=== PATIENT | female | born 1965 | race Caucasian/White ===

== ENCOUNTER 2022-07-17 16:45 | Inpatient (IN) | payer OTHER ==
[~2022-07-17] VITALS: Ht 170.2 cm; Wt 109.1 kg
[2022-07-17] MEDS ORDERED: DIVA250T67 (16:59)
[2022-07-17] MEDS ORDERED: ONDANSETRON 4MG 2ML VIAL IV ONE (21:00)
[2022-07-17] MEDS ORDERED: NS 1,000 ML IV ONE (21:00)
[2022-07-17] MEDS ORDERED: KETOROLAC 30 MG/ML 1ML VIAL IV ONE (21:00)
[2022-07-17 21:53] LABS: BASO # 0.1 10^3/uL (0.0-0.2); BASO % 0.2 % (0.0-1.0); EOS # 0.1 10^3/uL (0.0-0.5); EOS % 0.4 % (0.0-3.0); HEMATOCRIT 29.1 % (36.0-47.0); HEMOGLOBIN 8.5 g/dl (12.0-15.5); LYMPH # 2.5 10^3/uL (1.5-5.0); LYMPH % 9.9 % (24.0-44.0); MEAN CORPUSCULAR HEMOGLOBIN 24.6 pg (27.0-33.0); MEAN CORPUSCULAR HGB CONC 29.2 g/dl (32.0-36.5); MEAN CORPUSCULAR VOLUME 84.1 fl (80.0-96.0); MONO % 7.1 % (2.0-8.0); NEUTROPHILS # 20.3 10^3/uL (1.5-8.5); NEUTROPHILS % 79.8 % (36.0-66.0); PLATELET COUNT, AUTOMATED 775 10^3/uL (150-450); RED BLOOD COUNT 3.46 10^6/uL (4.00-5.40); WHITE BLOOD COUNT 25.4 10^3/uL (4.0-10.0)
[2022-07-17 22:15] LABS: LIPASE 17 U/L (12-53)
[2022-07-17] MEDS ORDERED: ISOVUE-370 76% 100ML VIAL As Ordered ONE (22:16)
[2022-07-17 22:21] LABS: ALBUMIN 2.1 G/DL (3.2-5.2); ALKALINE PHOSPHATASE 166 U/L (46-116); ALT/SGPT 15 U/L (7.0-40); AST/SGOT 21 U/L (<34); BILIRUBIN,DIRECT 0.5 MG/DL (<0.4); TOTAL PROTEIN 7.1 G/DL (5.7-8.2)
[2022-07-17 22:27] LABS: RSV AMPLIFICATION NEGATIVE (NEGATIVE)
[2022-07-17 22:30] LABS: HCG, SERUM QUALITATIVE NEGATIVE (NEGATIVE)
[2022-07-17 22:35] LABS: MONO # 1.8 10^3/uL (0.0-0.8)
[2022-07-17] MEDS ORDERED: MORPHINE 4 MG/ML 1ML VIAL IV PRN (23:20)
[2022-07-18] MEDS ORDERED: METOCLOPRAMIDE INJ 10MG/2ML VIAL IV ONE (00:25)
[2022-07-18] MEDS ORDERED: metroNIDAZOLE 500 MG in IV 1 EA IV ONE (00:30)
[2022-07-18] MEDS ORDERED: LevoFLOXacin IV 750 MG in IV 1 EA IV ONE (00:30)
[2022-07-18] MEDS ORDERED: HOME MED LIST COMPLETE! XX SCH (01:25)
[2022-07-18] MEDS ORDERED: ONDANSETRON 4MG 2ML VIAL IV PRN (01:40)
[2022-07-18] MEDS ORDERED: POTASSIUM CHLORIDE 10MEQ SR TABLET PO ONE (01:40)
[2022-07-18 03:30] VITALS: BP 92/64
[2022-07-18] MEDS: NS 1,000 ML IV SCH ×3 (03:42→22:18)
[2022-07-18] MEDS: ACETAMINOPHEN TAB 650MG DOSE (2X325MG) PO PRN (03:48)
[2022-07-18] MEDS: HEPARIN SOD (PORCINE) 5000UNITS/ML 1ML VIAL/SYRINGE SC SCH ×3 (05:42→21:04)
[2022-07-18 06:00] VITALS: BP 91/58
[2022-07-18] MEDS ORDERED: DOXYCYCLINE HYCLATE 100 MG in D5W MINI-BAG PLUS 100 ML IV SCH (06:00)
[2022-07-18 07:23] LABS: BASO # 0.1 10^3/uL (0.0-0.2); BASO % 0.3 % (0.0-1.0); EOS # 0.1 10^3/uL (0.0-0.5); EOS % 0.6 % (0.0-3.0); HEMATOCRIT 24.9 % (36.0-47.0); HEMOGLOBIN 7.4 g/dl (12.0-15.5); LYMPH # 1.8 10^3/uL (1.5-5.0); LYMPH % 9.9 % (24.0-44.0); MEAN CORPUSCULAR HEMOGLOBIN 25.4 pg (27.0-33.0); MEAN CORPUSCULAR HGB CONC 29.7 g/dl (32.0-36.5); MEAN CORPUSCULAR VOLUME 85.6 fl (80.0-96.0); MONO # 1.4 10^3/uL (0.0-0.8); NEUTROPHILS # 13.9 10^3/uL (1.5-8.5); NEUTROPHILS % 78.6 % (36.0-66.0); RED BLOOD COUNT 2.91 10^6/uL (4.00-5.40); WHITE BLOOD COUNT 17.7 10^3/uL (4.0-10.0)
[2022-07-18 07:25] LABS: PLATELET COUNT, AUTOMATED 613 10^3/uL (150-450)
[2022-07-18 07:37] LABS: BLOOD UREA NITROGEN 33 MG/DL (9-23); CALCIUM LEVEL 7.6 MG/DL (8.5-10.1); CARBON DIOXIDE LEVEL 23 MMOL/L (20-31); CHLORIDE LEVEL 102 MMOL/L (98-107); CREATININE FOR GFR 1.49 MG/DL (0.55-1.30); GLOMERULAR FILTRATION RATE 38.7 (>51); GLUCOSE, FASTING 136 MG/DL (60-100); IRON (FE) 41 UG/DL (50-170); PERCENT SATURATION 21.7 % (13.2-45.0); POTASSIUM SERUM 3.8 MMOL/L (3.5-5.1); SODIUM LEVEL 136 MMOL/L (136-145); TOTAL IRON BINDING CAPACITY 189 UG/DL (250-425)
[2022-07-18 07:39] LABS: FERRITIN 327.4 NG/ML (7.3-270.7); FOLATE 2.25 NG/ML (>5.4)
[2022-07-18] MEDS ORDERED: metroNIDAZOLE 500 MG in IV 1 EA IV SCH (09:00)
[2022-07-18 10:10] LABS: CARCINOEMBRYONIC ANTIGEN < 2.0 NG/ML (<2.5)
[2022-07-18 10:25] LABS: CA19-9 TUMOR MARKER,CARBOHYDRA 37.3 U/ML (<35.0)
[2022-07-18 14:00] VITALS: BP 109/59
[2022-07-18] MEDS: ONDANSETRON 4MG 2ML VIAL IV PRN ×2 (14:46→22:18)
[2022-07-18] MEDS: MORPHINE 2 MG/ML 1ML VIAL IV PRN ×2 (14:47→21:04)
[2022-07-18] MEDS: LevoFLOXacin IV 750 MG in IV 1 EA IV SCH (16:56)
[2022-07-18] MEDS: metroNIDAZOLE 500 MG in IV 1 EA IV SCH (19:59)
[2022-07-18 20:17] VITALS: BP 113/58
[2022-07-19] VITALS (14 sets, daily range): BP systolic 95–124; BP diastolic 39–62
[2022-07-19] MEDS: metroNIDAZOLE 500 MG in IV 1 EA IV SCH ×3 (02:07→18:08)
[2022-07-19] MEDS: MORPHINE 2 MG/ML 1ML VIAL IV PRN (04:31)
[2022-07-19] MEDS: NS 1,000 ML IV SCH ×2 (04:32→17:39)
[2022-07-19] MEDS: ONDANSETRON 4MG 2ML VIAL IV PRN (04:32)
[2022-07-19] MEDS: HEPARIN SOD (PORCINE) 5000UNITS/ML 1ML VIAL/SYRINGE SC SCH (04:32)
[2022-07-19 06:53] LABS: BASO # 0.1 10^3/uL (0.0-0.2); BASO % 0.3 % (0.0-1.0); EOS # 0.1 10^3/uL (0.0-0.5); EOS % 0.6 % (0.0-3.0); HEMATOCRIT 23.1 % (36.0-47.0); LYMPH # 1.7 10^3/uL (1.5-5.0); MEAN CORPUSCULAR HEMOGLOBIN 24.5 pg (27.0-33.0); MEAN CORPUSCULAR HGB CONC 28.1 g/dl (32.0-36.5); MEAN CORPUSCULAR VOLUME 87.2 fl (80.0-96.0); MONO # 1.2 10^3/uL (0.0-0.8); MONO % 7.9 % (2.0-8.0); NEUTROPHILS # 11.8 10^3/uL (1.5-8.5); NEUTROPHILS % 76.9 % (36.0-66.0); PLATELET COUNT, AUTOMATED 560 10^3/uL (150-450); RED BLOOD COUNT 2.65 10^6/uL (4.00-5.40); WHITE BLOOD COUNT 15.3 10^3/uL (4.0-10.0)
[2022-07-19 06:56] LABS: HEMOGLOBIN 6.5 g/dl (12.0-15.5)
[2022-07-19 07:23] LABS: CALCIUM LEVEL 7.5 MG/DL (8.5-10.1); CREATININE FOR GFR 1.26 MG/DL (0.55-1.30); GLOMERULAR FILTRATION RATE 46.9 (>51); POTASSIUM SERUM 3.7 MMOL/L (3.5-5.1)
[2022-07-19 09:26] LABS: ALBUMIN 1.6 G/DL (3.2-5.2); BILIRUBIN,TOTAL 0.6 MG/DL (0.3-1.2); TOTAL PROTEIN 5.6 G/DL (5.7-8.2)
[2022-07-19] MEDS: ACETAMINOPHEN TAB 650MG DOSE (2X325MG) PO PRN (10:11)
[2022-07-19] MEDS ORDERED: LR 1,000 ML IV ONE (12:20)
[2022-07-19] MEDS: MORPHINE 4 MG/ML 1ML VIAL IV PRN ×2 (15:48→22:08)
[2022-07-19] MEDS: FOLIC ACID 1 MG in NS 50 ML IV SCH (15:51)
[2022-07-19] MEDS: LevoFLOXacin IV 750 MG in IV 1 EA IV SCH (16:03)
[2022-07-19] MEDS ORDERED: NICOTINE POLACRILEX 2 MG GUM PO PRN ×2 (16:05→16:15)
[2022-07-19 16:17] LABS: HEMATOCRIT 29.5 % (36.0-47.0); HEMOGLOBIN 8.8 g/dl (12.0-15.5)
[2022-07-19] MEDS ORDERED: ISOVUE-370 76% 100ML VIAL As Ordered ONE (20:18)
[2022-07-19 20:22] LABS: HEMATOCRIT 29.3 % (36.0-47.0); HEMOGLOBIN 8.9 g/dl (12.0-15.5)
[2022-07-20] VITALS (8 sets, daily range): BP systolic 97–117; BP diastolic 43–54
[2022-07-20] MEDS: ONDANSETRON 4MG 2ML VIAL IV PRN ×2 (00:49→16:22)
[2022-07-20] MEDS: metroNIDAZOLE 500 MG in IV 1 EA IV SCH ×3 (00:49→17:16)
[2022-07-20 04:59] LABS: HEMATOCRIT 28.6 % (36.0-47.0); HEMOGLOBIN 8.6 g/dl (12.0-15.5)
[2022-07-20] MEDS: NS 1,000 ML IV SCH ×2 (05:58→14:07)
[2022-07-20] MEDS ORDERED: ACETAMINOPHEN 1000MG 100ML IV BAG IV ONE (09:35)
[2022-07-20] MEDS ORDERED: ACETAMINOPHEN *IV* 1,000 MG IV ONE ×2 (11:00)
[2022-07-20 12:30] LABS: HEMATOCRIT 28.7 % (36.0-47.0); HEMOGLOBIN 8.6 g/dl (12.0-15.5)
[2022-07-20] MEDS: FOLIC ACID 1 MG in NS 50 ML IV SCH (14:07)
[2022-07-20] MEDS: LevoFLOXacin IV 750 MG in IV 1 EA IV SCH (16:15)
[2022-07-20] MEDS ORDERED: NORCO, ANEXSIA 5/325MG TABLET (HYDROcodone/ACETAMINOPHEN) PO PRN (16:35)
[2022-07-20] MEDS ORDERED: FOLI1TAB11 PO (19:52)
[2022-07-20] MEDS ORDERED: HYDR-3715 PO (19:52)
[2022-07-20 20:37] LABS: BASO # 0.1 10^3/uL (0.0-0.2); BASO % 0.6 % (0.0-1.0); EOS # 0.2 10^3/uL (0.0-0.5); EOS % 0.7 % (0.0-3.0); HEMATOCRIT 31.5 % (36.0-47.0); HEMOGLOBIN 9.6 g/dl (12.0-15.5); LYMPH # 2.6 10^3/uL (1.5-5.0); LYMPH % 11.5 % (24.0-44.0); MEAN CORPUSCULAR HEMOGLOBIN 26.2 pg (27.0-33.0); MEAN CORPUSCULAR HGB CONC 30.5 g/dl (32.0-36.5); MEAN CORPUSCULAR VOLUME 86.1 fl (80.0-96.0); MONO # 1.4 10^3/uL (0.0-0.8); MONO % 6.1 % (2.0-8.0); NEUTROPHILS # 17.2 10^3/uL (1.5-8.5); NEUTROPHILS % 76.8 % (36.0-66.0); PLATELET COUNT, AUTOMATED 664 10^3/uL (150-450); RED BLOOD COUNT 3.66 10^6/uL (4.00-5.40); WHITE BLOOD COUNT 22.4 10^3/uL (4.0-10.0)
== END 2022-07-20 20:54 | disposition short-term general hospital (02) | DRG 530 ==
LOC: M ED 16:45 → M ED INP 07-18 01:38 → M MS5PR 07-18 03:36 → M PCU 07-19 10:55
PROVIDERS: ADMIT Internal Medicine; ATTEND Student in an Organized Health Care Education/Training Program
PROC: 30233N1 Transfusion of Nonautologous Red Blood Cells into Peripheral Vein, Percutaneous Approach (ICD-10-PCS; principal; 2022-07-19)
DX: C56.9 Malignant neoplasm of unspecified ovary (principal); N17.9 Acute kidney failure, unspecified; K76.0 Fatty (change of) liver, not elsewhere classified; K56.7 Ileus, unspecified; D62 Acute posthemorrhagic anemia; D50.9 Iron deficiency anemia, unspecified; F17.210 Nicotine dependence, cigarettes, uncomplicated; I10 Essential (primary) hypertension; F32.A Depression, unspecified; R19.7 Diarrhea, unspecified; R11.2 Nausea with vomiting, unspecified; E87.6 Hypokalemia; J45.909 Unspecified asthma, uncomplicated; E66.9 Obesity, unspecified; R73.03 Prediabetes; M10.9 Gout, unspecified; K21.9 Gastro-esophageal reflux disease without esophagitis; G43.909 Migraine, unspecified, not intractable, without status migrainosus; D35.00 Benign neoplasm of unspecified adrenal gland; Z20.822 Contact with and (suspected) exposure to COVID-19; Z88.0 Allergy status to penicillin; Z88.2 Allergy status to sulfonamides; Z88.8 Allergy status to other drugs, medicaments and biological substances; Z83.3 Family history of diabetes mellitus